=== PATIENT | female | born 1935 | race Caucasian/White ===

== ENCOUNTER 2017-01-03 09:12 | Outpatient (CLI) | payer MEDICARE, OTHER ==
[2017-01-03 09:22] LABS: Blood, Urine Negative (Negative); Glucose, Urine (Dipstick) Negative (Negative); Leukocyte Small (Negative); Nitrite Positive (Negative); Protein, Urine (Dipstick) Negative (Neg-Trace)
[2017-01-03 09:28] LABS: Bacteria/HPF 4+ HPF (None Seen); Bilirubin Negative (Negative); Clarity Cloudy (Clear); RBC/HPF 0-3 HPF (0-3); Squamous Epithelial 0-3 HPF (0-3)
[2017-01-03 09:29] LABS: Other Microscopic Description C&S SET UP
== END 2017-01-03 09:13 | disposition home or self-care (01) ==
LOC: BURLABSP 09:12
PROVIDERS: ATTEND Clinical Nurse Specialist Medical-Surgical
DX: E87.1 Hypo-osmolality and hyponatremia (principal)
CPT/HCPCS: 81001; 87077; 87086; 87186

== ENCOUNTER 2017-05-07 22:03 | Emergency (ER) | payer MEDICARE, OTHER ==
[2017-05-07] MEDS ORDERED: Sodium Chloride 0.9% 100 ML ONE (22:23)
[2017-05-07] MEDS ORDERED: cefTRIAXone\\ROCEPHIN 2 GM VIAL ONE (22:23)
[2017-05-07] MEDS ORDERED: Albuterol Sulfate 1.25 MG/3 ML NEB ONE (22:29)
[2017-05-07 22:49] LABS: #Basophils 0.1 thou/uL (0.0-0.2); #Eosinphils 0.1 thou/uL (0.0-0.7); #Lymphocytes 1.1 thou/uL (1.20-3.40); #Monocytes 0.8 thou/uL (0.11-0.59); #Neutrophils 13.1 thou/uL (1.40-6.50); %Basophils 0.4 % (0.0-1.0); %Eosinophils 0.7 % (0.0-10.0); %Lymphocytes 7.4 % (21.0-51.0); %Monocytes 5.1 % (0.0-10.0); %Neutrophils 86.5 % (42.0-75.0); Mean Corpuscular HGB CONC 30.3 g/dL (32.0-36.0); Mean Corpuscular Hemoglobin 26.2 pg (27.0-31.0); Mean Corpuscular Volume 86.5 fl (81.0-99.0); Mean Platelet Volume 5.5 fL (7.4-10.4); Platelet Count 409 thou/uL (130-400); RBC Distribution Width 14.8 % (11.5-14.5); Red Blood Cell (RBC) Count 3.43 mill/uL (4.20-5.40); White Blood Cell (WBC) Count 15.1 thou/uL (4.8-10.8)
--- NOTE | 2017-05-07 22:50 | RAD ---
PORTABLE CHEST 05/07/17 PROVIDED CLINICAL HISTORY: Dyspnea. FINDINGS: Comparison is made with the study dated 03/15/16. The cardiac and mediastinal silhouette is unchanged in appearance. Atherosclerosis is redemonstrated. No focal consolidation or pneumothorax apparent. Blunting of the right costophrenic angle could refl ect a small pleural effusion. IMPRESSION: Blunting of the right costophrenic angle may reflect small pleural effusion. POS: M[facility]O
[2017-05-07 23:00] LABS: ALT (SGPT) 11 U/L (8-55); AST (SGOT) 13 U/L (5-34); Albumin 3.1 g/dL (3.4-4.8); Alkaline Phosphatase 71 U/L (40-150); Anion Gap 14 mmol/L (10-20); BUN (Urea Nitrogen) 18 mg/dL (9.8-20.1); Bilirubin, Total 0.2 mg/dL (0.2-1.2); Calc. Creatinine Clearance 0 mL/min (70-130); Calcium 8.6 mg/dL (7.8-10.44); Carbon Dioxide 28 mmol/L (23-31); Chloride 103 mmol/L (98-107); Estimated GFR-MDRD 68; Globulin 3.7 g/dL (2.4-3.5); Glucose 125 mg/dL (83-110); Potassium 4.2 mmol/L (3.5-5.1); Protein, Total 6.8 g/dL (6.0-8.3); Sodium 141 mmol/L (136-145)
[2017-05-07 23:02] LABS: CKMB 1.1 ng/mL (0-6.6); Troponin I 0.013 ng/mL (< 0.028)
[2017-05-07 23:32] LABS: Bilirubin Negative (Negative); Blood, Urine Negative (Negative); Clarity Cloudy (Clear); Glucose, Urine (Dipstick) Negative (Negative); Leukocyte Small (Negative); Nitrite Positive (Negative); Protein, Urine (Dipstick) Negative (Neg-Trace)
[2017-05-07 23:33] LABS: Specific Gravity, Urine 1.022 (1.002-1.036)
[2017-05-07 23:40] LABS: Bacteria/HPF 4+ HPF (None Seen); RBC/HPF 0-3 HPF (0-3); Squamous Epithelial 0-3 HPF (0-3)
[2017-05-07 23:41] LABS: Other Microscopic Description 1+ MUCUS
== END 2017-05-07 23:38 | disposition short-term general hospital (02) ==
LOC: BURERS 22:03
DX: J18.9 Pneumonia, unspecified organism (principal); R09.02 Hypoxemia; N39.0 Urinary tract infection, site not specified; K21.9 Gastro-esophageal reflux disease without esophagitis; E78.5 Hyperlipidemia, unspecified; I10 Essential (primary) hypertension
CPT/HCPCS: 36415; 71010; 80053; 81003; 81015; 82553; 83605; 83880; 84484; 85025; 87040; 87070; 87077; 87086; 87186; 87205; 93005; 94640; 94760; 96365; A4353; J0696; J7050; J7620

== ENCOUNTER 2017-05-27 15:57 | Emergency (ER) | payer MEDICARE, OTHER | END 2017-05-27 16:33 | disposition home or self-care (01) | LOC: BURERS 15:57 | DX: S62.521A Displaced fracture of distal phalanx of right thumb, initial encounter for closed fracture (principal); K21.9 Gastro-esophageal reflux disease without esophagitis; E78.5 Hyperlipidemia, unspecified; I10 Essential (primary) hypertension; W18.30XA Fall on same level, unspecified, initial encounter | CPT/HCPCS: 99283 ==

== ENCOUNTER 2017-07-06 00:09 | Emergency (ER) | payer MEDICARE, OTHER ==
--- NOTE | 2017-07-06 07:29 | RAD ---
PORTABLE CHEST: DATE: 07/06/17. FINDINGS: An AP portable film at 0013 is compared with the 07/01 study done at [facility]. Heart size is the same. There is no vascular congestion, edema, or pleural effusion. There is a que stion, however, if there might be a minimal left basilar infiltrate. This area is not seen exception ally well on this portable film. Arteriosclerotic change is seen in the aorta. IMPRESSION: Questionable haziness in the left lung base. Followup chest x-rays are suggested. CODE T POS: HOME
== END 2017-07-06 01:49 ==
LOC: BURERS 00:09
DX: R09.89 Other specified symptoms and signs involving the circulatory and respiratory systems (principal); K21.9 Gastro-esophageal reflux disease without esophagitis; E78.5 Hyperlipidemia, unspecified; I10 Essential (primary) hypertension; Z79.899 Other long term (current) drug therapy
CPT/HCPCS: 71045

== ENCOUNTER 2017-08-22 16:35 | Emergency (ER) | payer MEDICARE, OTHER, MEDICAID ==
--- NOTE | 2017-08-22 23:31 | RAD ---
LEFT KNEE: 08/22/17 Multiple views were attempted given the difficulty positioning the patient. No gross fracture or join t effusion was seen. IMPRESSION: No acute finding. POS: HOME
--- NOTE | 2017-08-22 23:32 | RAD ---
LEFT FOREARM TWO VIEWS: 08/22/17 Limited positioning was available with this patient. The radius and ulna appear intact. Degenerative changes are seen in the carpal joints and in the radi ocarpal joint. IMPRESSION: No acute fractures. POS: HOME
--- NOTE | 2017-08-22 23:42 | CT ---
CT OF THE BRAIN WITHOUT CONTRAST 08/22/17 Comparison is made with a prior study of . There has been no significant interval change. No intracranial bleeding or extra-axial hematoma was s een. Atrophy with mild compensatory dilatation of the ventricles is present as before. An area of str juan luis in the right centrum semiovale, and right posterior frontal region is the same and is presumed to be old. No mass was seen. The calvarium appears intact with no sign of fracture. The sphenoid sinus and mastoid air cells are clear. IMPRESSION: 1. No acute intracranial findings. 2. 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 POS: HOME
--- NOTE | 2017-08-22 23:49 | CT ---
CT OF THE CERVICAL SPINE 08/22/[address] of the cervical spine was done following trauma. Axial slices were acquired, then coronal a nd sagittal reconstructions were done. No fracture or dislocation was seen at any cervical level. The C1 to dens distance is normal and the soft tissues are normal in thickness. There is some loss of lordosis in the lower cervical region whi ch could be due to spasm or could merely be longstanding. Severe degenerative changes are present thr oughout the spine. Disc space narrowing is very prominent in particular at C5-C6 with large anterior osteophytes. Narrowing is present at other levels as well. There is a minimal anterolisthesis of C4 o n C5 that appears to be due to facet changes due to arthritis. Findings by level follow: C1-C2: No acute findings. C2-C3: Severe facet arthritis bilaterally. Probably mild foraminal narrowing on the right. C3-C4: Severe facet arthritis, particularly on the left. Moderate to severe left foraminal narrowing. C4-C5: Severe facet arthritis bilaterally, more so on the left. The angulation of the images makes as sessment of the foramina difficult, but there is probably at least some mild narrowing bilaterally. C5-C6: No acute findings. Mild bilateral foraminal narrowing. C6-C7: No acute findings. C7-T1: No acute findings. The surrounding soft tissues showed no acute changes. IMPRESSION: Severe degenerative change as noted. No acute traumatic bony findings. POS: HOME
== END 2017-08-22 19:15 | disposition home or self-care (01) ==
LOC: BURERS 16:35
DX: S51.812A Laceration without foreign body of left forearm, initial encounter (principal); S50.02XA Contusion of left elbow, initial encounter; S80.02XA Contusion of left knee, initial encounter; S00.81XD Abrasion of other part of head, subsequent encounter; F03.90 Unspecified dementia, unspecified severity, without behavioral disturbance, psychotic disturbance, mood disturbance, and anxiety; M24.552 Contracture, left hip; M24.551 Contracture, right hip; M24.562 Contracture, left knee; M24.561 Contracture, right knee; G40.909 Epilepsy, unspecified, not intractable, without status epilepticus; K21.9 Gastro-esophageal reflux disease without esophagitis; E78.5 Hyperlipidemia, unspecified; I10 Essential (primary) hypertension; G47.00 Insomnia, unspecified; D12.6 Benign neoplasm of colon, unspecified; F41.9 Anxiety disorder, unspecified; F32.9 Major depressive disorder, single episode, unspecified; Z79.82 Long term (current) use of aspirin; Z79.899 Other long term (current) drug therapy; W06.XXXA Fall from bed, initial encounter
CPT/HCPCS: 70450; 72125

== ENCOUNTER 2018-01-07 10:59 | Emergency (ER) | payer MEDICARE, MEDICAID ==
[2018-01-07] MEDS ORDERED: Doxycycline Hyclate 100 MG TAB ONE ×2 (12:15→12:29)
== END 2018-01-07 12:34 | disposition home or self-care (01) ==
LOC: BURERS 10:59
DX: L03.012 Cellulitis of left finger (principal); M24.542 Contracture, left hand; M24.541 Contracture, right hand; L89.899 Pressure ulcer of other site, unspecified stage; G40.909 Epilepsy, unspecified, not intractable, without status epilepticus; K21.9 Gastro-esophageal reflux disease without esophagitis; E78.5 Hyperlipidemia, unspecified; I10 Essential (primary) hypertension; F31.9 Bipolar disorder, unspecified; F41.9 Anxiety disorder, unspecified; Z79.899 Other long term (current) drug therapy; Z79.82 Long term (current) use of aspirin
CPT/HCPCS: 99284